=== PATIENT | female | born 1965 | race Caucasian/White ===

== ENCOUNTER → 2019-02-20 | Outpatient (CLI) | payer OTHER | END | disposition home or self-care (01) | LOC: SHCH 10:20 | PROVIDERS: ATTEND Internal Medicine Cardiovascular Disease | DX: Z09 Encounter for follow-up examination after completed treatment for conditions other than malignant neoplasm (principal); I82.811 Embolism and thrombosis of superficial veins of right lower extremity | CPT/HCPCS: 93971 ==

== ENCOUNTER → 2019-03-20 | Outpatient (CLI) | payer OTHER | END | disposition home or self-care (01) | LOC: SHCH 08:56 | PROVIDERS: ATTEND Internal Medicine Cardiovascular Disease | DX: Z09 Encounter for follow-up examination after completed treatment for conditions other than malignant neoplasm (principal); I82.812 Embolism and thrombosis of superficial veins of left lower extremity | CPT/HCPCS: 93971 ==

== ENCOUNTER → 2022-08-10 | Outpatient (CLI) | payer OTHER | END | disposition home or self-care (01) | LOC: RAH 13:37 | PROVIDERS: ATTEND Internal Medicine Cardiovascular Disease | DX: Z13.6 Encounter for screening for cardiovascular disorders (principal); R93.1 Abnormal findings on diagnostic imaging of heart and coronary circulation | CPT/HCPCS: 75571 ==

== ENCOUNTER → 2022-09-22 | Outpatient (CLI) | payer OTHER | END | disposition home or self-care (01) | LOC: RAH 07:49 | PROVIDERS: ATTEND Internal Medicine Cardiovascular Disease | DX: I25.10 Atherosclerotic heart disease of native coronary artery without angina pectoris (principal); R00.0 Tachycardia, unspecified | CPT/HCPCS: 78452; 96374; 93017; A9500 ×2 ==

== ENCOUNTER → 2025-02-19 | Outpatient (CLI) | payer OTHER ==
[~2025-02-19] MED LIST: IOHEXOL 350 MG/ML 100ML INFUS..BTL IV ONE
--- NOTE | 2025-02-26 18:39 | CARDIOLOGY ---
RAD REPORT: CORNARY CT ANGIO RADIOLOGY REPORT: CORONARY CT ANGIOGRAPHY DATE: February 19, 2025 QUALITY: Excellent CLINICAL HISTORY AND INDICATION: [Elevated CAC 3424 ] TECHNIQUE: After obtaining a preliminary cras image, contrast imaging performed on an Aquillon [id number] scanner. A dedicated, limited window, coronary imaging protocol was used, with single breath-hold, retrospective ECG gating, and automated arrhythmia rejection. 100 cc of low osmolar contrast agent: Omnipaque 350 was delivered via a 18-gauge IV catheter in the right antecubital fossa, using a power injector and followed by 60 cc of normal saline bolus as a chaser. Collimated images were reformatted at 0.5 mm intervals, and sent to an offline independent workstation for interpretation, using 3D anatomic reconstructions: Curved multiplanar reconstructions, maximum intensity projections, and multiplanar imaging. No metoprolol was administered prior to scanning due to low baseline heart rate. 0.4 mg SL nitroglycerin was given. CORONARY ARTERY DESCRIPTIONS: The coronary arteries arise in normal position. Left main coronary artery: Normal caliber vessel that bifurcates into the LAD and LCx. No stenosis. Left anterior descending coronary artery: Normal caliber vessel and gives rise to diagonal and septal branches. There is mixed calcified and noncalcified plaque in the mid LAD with 20-30% stenosis. Left circumflex coronary artery: Normal caliber, nondominant and gives rise to two large OM branches. No stenosis. Right coronary artery: Large, dominant vessel giving rise to the PL and PDA branches. No stenosis. CAD-RADs: 2, mild non-obstructive CAD. Thoracic Aorta: Normal diameter. Jenelle Griffith MD Cardiovascular Disease [facility] JENELLE GRIFFITH MD Feb 26, 2025 18:39
== END | disposition home or self-care (01) ==
LOC: RAH 07:36
PROVIDERS: ATTEND Internal Medicine Cardiovascular Disease
DX: I25.10 Atherosclerotic heart disease of native coronary artery without angina pectoris (principal); R93.1 Abnormal findings on diagnostic imaging of heart and coronary circulation
CPT/HCPCS: 75574; J3490; Q9967

== ENCOUNTER 2025-04-16 16:46 | Emergency (ER) | payer OTHER ==
[~2025-04-16] VITALS: Ht 170.2 cm; Wt 112.5 kg
--- NOTE | 2025-04-16 17:29 | EKG ---
[facility] Test Date: 2025-04-16 Test Time: 17:22:48 Pat Name: MARCK RUIZ Department: ED Room: Gender: F Nut Culler: [id number] : 1965 Requested By: KANE AL Order Number: [id number] Reading MD: Peyton Hernández Measurements Intervals [place] Rate: 71 P: 50 AK: 167 QRS: 34 QRSD: 91 T: 18 QT: 394 QTc: 428 Interpretive Statements Sinus rhythm Low voltage, precordial leads No previous ECG available for comparison Electronically Signed On 04-16-2025 20:10:13 CDT by Peyton Hernández Please click the below link to view image of tracing.
--- NOTE | 2025-04-16 17:36 | ERN ---
ED Note History of Present Illness Stated Complaint: RT FACIAL NUMBNESS X 4 DAYS Chief Complaint: Numbness Time Seen by MD: 17:13 Time Seen by Midlevel: 17:13 Dictation: The patient is a 59-year-old female with history of hypertension and hyperlipemia who presents to the emergency department with complains of right facial numbness onset . Patient denies any current visual deficits. Reports that she felt her right leg a little numb yesterday but has resolved. Patient denies any recent illness, toothache or fevers. Denies any falls. Denies any extremity weakness. Denies any speech changes. Allergies: Coded Allergies: No Known Allergies (Unverified Allergy, Unknown, 04/16/25) Past Medical History Past Medical History: Hypertension Surgical History: None RN Note Reviewed/Agreed w/PFSH: Yes Review of System Dictation Constitutional: Negative for fever,chills, and weight loss Eyes: Negative for injury, pain,redness, and discharge ENT: Negative for injury,pain or swelling Cardiovascular: Negative for chest pain, palpitations, and edema Respiratory: Negative for shortness of breath, cough, and wheezing, Abdomen/GI: Negative for abdominal pain, nausea, vomiting, diarrhea, and constipation Back: Negative for injury and pain : Negative for injury, bleeding and discharge MS/Extremity: Negative for injury and deformity Skin: Negative for rash, and discoloration Neuro: Negative for headache, weakness,tingling, and seizure positive for right facial numbness Psych: Negative for suicide ideation, homicidal ideation, and hallucinations Initial Vital Sign VS Vital Signs Date Time Temp Pulse Resp B/P (MAP) Pulse Ox O2 Delivery O2 Flow Rate FiO2 04/16/25 16:47 98.6 93 16 142/88 96 Room Air 0 04/16/25 17:05 21 Physical Exam Dictation Vital Signs reviewed General Appearance: Alert, oriented x 3, no acute distress, well developed, nourished. Head and Face: non-traumatic. Eyes: PERRL, pink conjunctivas, eyelid no trauma, anterior chamber with arcus senilis. Ears: Pinnas intact and no signs of trauma or erythema ear canals clear and no discharge TM no erythema Nose: No discharge, no bleeding. Oropharynx: Mouth normal, tongue pink. pharynx clear,no erythema, tonsils no exudates, no abscesses noted, mucous membrane moist Neck: Supple, non-tender, no thyromegaly, no masses, no JVD, no bruits Breast:Deferred Chest:No tenderness, no crepitus, no paradoxical movement, no retractions Lungs:Clear, well-ventilated, symmetric, no rales, no wheezing, no rhonchi, no stridor, good breath sounds bilaterally Heart: Regular rate, regular rhythm, no murmur, no gallops Vascular: no peripheral edema, Abdomen: Soft, positive bowel sounds, nondistended, no guarding, nontender, no rebound, no masses no hepatomegaly, no splenomegaly, no Dumont's sign, no hernias. Rectal: Deferred Genital: Deferred Neurological: Normal speech, motor function intact, sensory function intact Musculoskeletal: Neck nontender, full range of motion, back nontender, full range of motion, Extremities: nontender, full range of motion Skin: Color pink, dry, no turgor, no rash, no lacerations, no abrasions, no contusions. Lymphatic: Deferred Results (Laboratory/Radiology) Laboratory/Radiology Laboratory Tests Test 04/16/25 17:38 White Blood Count 8.1 K/uL (4.8-10.8) Red Blood Count 4.58 MIL/uL (4.00-5.50) Hemoglobin 14.5 g/dL (12.0-16.0) Hematocrit 41.6 % (36-48) Mean Corpuscular Volume 90.8 fL (79-99) Mean Corpuscular Hemoglobin 31.7 pg (27.0-33.0) Mean Corpuscular Hemoglobin Concent 34.9 g/dL (32.0-36.0) Red Cell Distribution Width 12.8 % (11.0-15.5) Platelet Count 313 K/uL (130-400) Mean Platelet Volume 9.9 fL (7.5-10.5) Immature Granulocyte % (Auto) 0.2 % (0-1) Neutrophils (%) (Auto) 63.9 % (40.0-77.0) Lymphocytes (%) (Auto) 24.4 % (21.0-51.0) Monocytes (%) (Auto) 6.1 % (3.0-13.0) Eosinophils (%) (Auto) 4.8 % (0.0-8.0) Basophils (%) (Auto) 0.6 % (0.0-5.0) Neutrophils # (Auto) 5.1 K/uL (1.8-7.7) Lymphocytes # (Auto) 2.0 K/uL (1.0-4.8) Monocytes # (Auto) 0.5 K/uL (0.1-1.0) Eosinophils # (Auto) 0.39 K/uL (0.00-0.70) Basophils # (Auto) 0.05 K/uL (0.00-0.20) Absolute Immature Granulocyte (auto 0.02 K/uL (0-1) Nucleated Red Blood Cells 0.0 % (0.0-0.19) Prothrombin Time 10.0 SEC (9.6-11.6) Prothromb Time International Ratio 0.94 (0.85-1.15) Activated Partial Thromboplast Time 29.1 SEC (26.3-35.5) Sodium Level 145 mmol/L (136-145) Potassium Level 3.7 mmol/L (3.5-5.1) Chloride Level 106 mmol/L (101-111) Carbon Dioxide Level 27 mmol/L (21-32) Blood Urea Nitrogen 11 mg/dL (7-18) Creatinine 0.6 mg/dL (0.5-1.0) Glomerular Filtration Rate Calc 102 mL/min (>90) Random Glucose 107 mg/dL (70-105) H Total Calcium 8.8 mg/dL (8.5-10.1) Troponin I High Sensitivity 11 ng/L (4-50) REASON: right facial numbness ORDERING PHYSICIAN: KANE AL PROCEDURE: HEAD WO - CT HEAD/BRAIN W/O CONTRAST EXAM: CT Head Without IV contrast. CLINICAL HISTORY: right facial numbness TECHNIQUE: Axial computed tomography images of the head/brain without intravenous contrast. COMPARISON: None provided. FINDINGS: BRAIN: No evidence of acute hemorrhage. No mass lesion. No CT evidence for acute territorial infarct. No midline shift or extra-axial collections. VENTRICLES: No hydrocephalus. ORBITS: The orbits are unremarkable. SINUSES AND MASTOIDS: The paranasal sinuses and mastoid air cells are clear. BONES: No fracture. SOFT TISSUES: Unremarkable. IMPRESSION: No acute intracranial abnormality. /[place] JAY: sob ORDERING PHYSICIAN: KANE AL PROCEDURE: CXR1VW - CHEST 1VW EXAM: CR Chest, 1 View. CLINICAL HISTORY: sob COMPARISON: None provided. FINDINGS: LUNGS: The lungs show no infiltrate or other acute finding. PLEURAL SPACES: No evidence of pleural effusion or pneumothorax. MEDIASTINUM: Cardiac size and mediastinal contours within normal limits. BONES: No acute osseous abnormality. IMPRESSION: No acute cardiopulmonary pathology is evident. /[place] Labs Reviewed?: Yes EKG: (+) rhythm (Sinus rhythm) EKG Comment: Date:04/16/2025 Time:1722 Ventricular rate:71 HI interval:167 QRS duration:91 QT/QTc:394/428 EKG interpretation: Sinus rhythm Reviewed by ED Attending no STEMI ED Course ED Course Orders Procedure Category Date Status Time Cbc With Differential LAB 04/16/25 Complete 17:19 Chest 1vw RAD 04/16/25 Resulted 17:19 12 Lead Ekg Tracing- EKG 04/16/25 Resulted Technical 17:19 Troponin I High LAB 04/16/25 Complete Sensitivity 17:19 Basic Metabolic Panel LAB 04/16/25 Complete 17:19 Ct Head/Brain W/O CT 04/16/25 Resulted Contrast 17:19 Pt And Ptt LAB 04/16/25 Complete 19:17 Aspirin 81mg Chew Tab PHA 04/16/25 Complete (Aspirin 81mg Chew 19:30 Clopidogrel 75mg Tab PHA 04/16/25 Complete (Plavix 75mg) 19:30 Current Medications Medications (Trade) Dose Ordered Sig/Adele Route PRN Reason Start Time Stop Time Status Last Admin Dose Admin Aspirin (Aspirin 81mg Chew Tab) 81 mg ONCE ONCE PO 04/16/25 19:30 04/16/25 19:31 DC Clopidogrel Bisulfate (plaVIX 75MG) 75 mg ONCE ONCE PO 04/16/25 19:30 04/16/25 19:31 DC Vital Signs Date Time Temp Pulse Resp B/P (MAP) Pulse Ox O2 Delivery O2 Flow Rate FiO2 04/16/25 18:00 98.6 89 20 127/73 97 Room Air* 0 21 04/16/25 17:05 98.6 93 20 142/88 96 Room Air* 0 21 04/16/25 16:47 98.6 93 16 142/88 96 Room Air 0 Medical Decision Making MDM MDM: The patient is a 59-year-old female with history of hypertension and hyperlipemia who presents to the emergency department with complains of right facial numbness onset . Patient denies any current visual deficits. Reports that she felt her right leg a little numb yesterday but has resolved. Patient denies any recent illness, toothache or fevers. Denies any falls. Denies any extremity weakness. Denies any speech changes. CBC showed no leukocytosis, no anemia, chemistry showed no electrolyte imbalance, negative troponin, CT head showed no acute intracranial abnormality, x-ray showed no acute cardiopulmonary. Spoke to tele neurology, they recommend admission for stroke workup including MRI brain with and without contrast, echo with bubble study, aspirin and Plavix. Given no neurology at this facility we will transfer patient for higher level of care. Differential diagnosis: CVA, electrolyte imbalance, anxiety Comorbidities: Hyperlipidemia, hypertension Tests considered and not ordered secondary to shared decision making include: none Previous outside records reviewed: none Risk of complication and/or morbidity or mortality of patient management: The patient meets criteria for transfer Need for emergency major/minor surgery: No There are no social concerns with this patient. I independently interpreted the tests I ordered (labs, urinalysis, etc.). I discussed the case with the hospitalist for transfer, Mercedez CAMPOS from [facility] I discussed the case with the following specialists: Dr.Gurjeet Yanez Tele neurology who recommends admission for stroke work up including MRI, plavix and aspirin. Historian: pateint. I independently interpreted imaging studies and EKGs that I ordered (US, CT, XR, EKG, etc.). External chart review: none. Medical management and examination interpretation discussions were had by me with other qualified healthcare professionals as indicated for the patient's care. NIH STROKE SCALE: NIH STROKE SCALE Response (Comments) Value Level of Consciousness Alert 0 Ask patient month and their age Answers both correct 0 Command to open eyes, make fist and let go Obeys both correct 0 Best gaze (horizontal eye movement) Normal 0 Visual Field Testing No Visual Field Loss 0 Facial Paresis Normal / Symmetrical 0 Motor Function - Left Arm Normal 0 Motor Function - Right Arm Normal 0 Motor Function - Left Leg Normal 0 Motor Function - Right Leg Normal 0 Limb Ataxia No Ataxia 0 Sensory-pin prick to arms, legs, trunk and face Mild to Moderate Decrease 1 Best Language (describe picture, name items and read) No Aphasia 0 Dysarthria (read several words) Normal Articulation 0 Extinction and Inattention Normal 0 Total 1 DX & DISP Disposition: Transfer Decision to Admit Date: Apr 16, 2025 Decision to Admit Time: 20:18 Departure Impression: Primary Impression: CVA (cerebral vascular accident) Additional Impression: Right facial numbness Condition: Stable Referrals: ANDRE NAJERA MD (PCP) I have reviewed the case, and I agree with, Diagnosis and Plan KANE AL [facility] Apr 16, 2025 17:36
[2025-04-16 18:08] LABS: IMMATURE GRANULOCYTE ABSOLUTE 0.02 K/uL (0-1); NUCLEATED RED BLOOD CELLS 0.0 % (0.0-0.19); PLATELET COUNT (AUTO) 313 K/uL (130-400); RED BLOOD CELL COUNT(AUTO) 4.58 MIL/uL (4.00-5.50); RED CELL DISTRIBUTION WIDTH 12.8 % (11.0-15.5); WHITE BLOOD COUNT (AUTO) 8.1 K/uL (4.8-10.8)
[2025-04-16 18:17] LABS: CREATININE 0.6 mg/dL (0.5-1.0); GLOMERULAR FILTR. RATE CALC 102.0 mL/min (>90); GLUCOSE,RANDOM 107.0 mg/dL (70-105); SODIUM SERUM 145.0 mmol/L (136-145); UREA NITROGEN, BLOOD 11.0 mg/dL (7-18)
--- NOTE | 2025-04-16 18:43 | HMCIMG ---
EXAM: CT Head Without IV contrast. CLINICAL HISTORY: right facial numbness TECHNIQUE: Axial computed tomography images of the head/brain without intravenous contrast. COMPARISON: None provided. FINDINGS: BRAIN: No evidence of acute hemorrhage. No mass lesion. No CT evidence for acute territorial infarct. No midline shift or extra-axial collections. VENTRICLES: No hydrocephalus. ORBITS: The orbits are unremarkable. SINUSES AND MASTOIDS: The paranasal sinuses and mastoid air cells are clear. BONES: No fracture. SOFT TISSUES: Unremarkable. IMPRESSION: No acute intracranial abnormality. /[place]
--- NOTE | 2025-04-16 18:58 | HMCIMG ---
EXAM: CR Chest, 1 View. CLINICAL HISTORY: sob COMPARISON: None provided. FINDINGS: LUNGS: The lungs show no infiltrate or other acute finding. PLEURAL SPACES: No evidence of pleural effusion or pneumothorax. MEDIASTINUM: Cardiac size and mediastinal contours within normal limits. BONES: No acute osseous abnormality. IMPRESSION: No acute cardiopulmonary pathology is evident. /[place]
--- NOTE | 2025-04-16 18:58 | CONS ---
CONSULT NOTE: [facility] Neuro Note # Demographics Consult Type: General Neurology Patient Location: Emergency Room First Name: MARKC Nolasco Last Name: SARA Date of : 1965 Age: 59 Gender: Female Facility: [facility] Time of Initial Page (Central Time): 04/16/2025 18:22 First Contact with Site (Central Time): 04/16/2025 18:22 # HPI History: LKN- 7 days ago. Patient is coming to the ER for right facial numbness; her symptoms started 7 days ago. She had the symptoms of numbness on the right side of face- numbness which is waxing and waning pattern- usually lasts 15-20 min and then it resolves. History of hypertension and hyperlipidemia. On ASA 81 mg daily # Scores Time of exam and NIHSS (Central Time): 04/16/2025 18:51 Level of Consciousness 1a: [0] = Alert; keenly responsive LOC Questions 1b: [0] = Answers both questions correctly LOC Commands 1c: [0] = Performs both tasks correctly Best Gaze 2: [0] = Normal Visual 3: [0] = No visual loss Facial Palsy 4: [0] = Normal symmetrical movements Motor Arm Left 5a: [0] = No drift Motor Arm Right 5b: [0] = No drift Motor Leg Left 6a: [0] = No drift Motor Leg Right 6b: [0] = No drift Limb Ataxia 7: [0] = Absent Sensory 8: [1] = [id number] sensory loss Best Language 9: [0] = No aphasia Dysarthria 10: [0] = Normal Extinction and Inattention 11: [0] = No abnormality NIHSS Total: 1 # Assessment Impression: - Ischemic Stroke (Acute) Had waxing and waning symptoms of right facial numbness- differential includes stroke vs MS vs complex migraines- recommend MRI brain wwo contrast. Differential Diagnosis: - Other - Multiple Sclerosis - Migraine (Complex) # Plan Thrombolytic/Intervention: NOT IV Thrombolysis or IA Intervention candidate Thrombolytic Exclusion: > 4.5 hours Intraarterial Exclusion: - no large vessel occlusion (LVO) Target Blood Pressure: - SBP < 180 - SBP > 140 Labs: - hemoglobin A1c - lipid panel - comprehensive metabolic panel - CBC Imaging: (urgency: routine): - MRI Brain with AND without contrast Diagnostic Test: - echo with bubble study Therapy/Evaluation: - NPO until swallow evaluation - PT/OT evaluation Medication: - aspirin 81 mg PLUS clopidogrel (Plavix) 75 mg for 21 days, then monotherapy therafter - start statin with goal of LDL < 70 Other: - If patient has any neurological deterioration please call me back immediately - permissive hypertension - LDL < 70 - telemetry monitoring - will need event monitor or loop recorder as outpatient if atrial fibrillation not found as inpatient - neurology referral as outpatient - I have discussed my recommendations with the referring provider - would not pursue stroke work-up if MRI is negative Disposition: admit # Demographics First Name: MARCK Nolasco [facility] Facility: [facility] GRISELDA JIMENEZ MD Apr 16, 2025 18:58
--- NOTE | 2025-04-16 19:00 | NUR ---
TELE NEURO CONSULT DONE
--- NOTE | 2025-04-16 19:33 | NUR ---
CONCRETE LAYER MADE AWARE OF NEED FOR TRANSFER
[2025-04-16 19:45] LABS: INR 0.94 (0.85-1.15)
--- NOTE | 2025-04-16 19:45 | NUR ---
TRANSFER: CALL PLACED TO [facility] TRANSFER [facility]; TRANSFER INITIATED FOR NEUROLOGY. SPOKE WITH FLAQUITA AT TRANSFER CENTER.
[2025-04-16 20:36] VITALS: BP 143/83; PULSE 70; RESP 18; TEMP 99.4; O2SAT 97
--- NOTE | 2025-04-16 20:41 | NUR ---
TRANSFER: PATIENT ACCEPTED TO [facility]; ROOM #[id number], DR. EDWIN JACKSON.
[2025-04-16] MEDS: ASPIRIN 81MG CHEW TAB PO ONE (20:44)
--- NOTE | 2025-04-16 21:00 | NUR ---
TRANSPORT: CALL PLACED TO [facility] FOR TRANSPORT TO [facility], ROOM #[id number].
--- NOTE | 2025-04-16 21:38 | NUR ---
REPORT CALLED TO [facility] LINDSAY CORTEZ RN. ROOM 1338
== END 2025-04-16 21:40 | disposition short-term general hospital (02) ==
LOC: EDH 16:46
DX: I63.9 Cerebral infarction, unspecified (principal); R20.0 Anesthesia of skin; I10 Essential (primary) hypertension; E78.5 Hyperlipidemia, unspecified
CPT/HCPCS: 36415; 70450; 71045; 80048; 84484; 85025; 85610; 85730; 93005; 99285